=== PATIENT | female | born 1985 | race Caucasian/White ===

== ENCOUNTER 2019-01-18 16:49 | Emergency (ER) | payer MEDICAID ==
[~2019-01-18] VITALS: Ht 172.7 cm; Wt 103.9 kg
[2019-01-18 17:02] VITALS: BP 147/62
--- NOTE | 2019-01-18 17:10 | NUR ---
PT TO WAIT IN [facility] FOR ER BED. AA0X4. AMB WITH STEADY GAIT Addendum: 01/18/19 at 1716 by [email or web address] PER COLIN ALEGRE PT OKAY TO WAIT IN [facility]
--- NOTE | 2019-01-18 17:10 | NUR ---
BIB FRIEND. AAO X4 C/O N/V/D AND AB PAIN X TODAY. DENIES VAGINAL BLEEDING. LMP OCTOBER 01, 2018. 15 WEEKS. CONFIRMED BY US. TAKING PRENATALSGRAVIDA 8, 2 MISCARRIAGES, 2 ABORTIONS, 3 LIVING. PT IS TAKING VITAMINS AND IS BEING SEEN BY AN OB DOCTOR. ER TO EVALUATE PT. PMH- ANEMIA
--- NOTE | 2019-01-18 17:47 | NUR ---
DR LAYNE AT BEDSIDE FOR PT EVAL
[2019-01-18] MEDS ORDERED: ONDANSETRON 4 MG/2 ML VIAL IVP ONE (17:50)
[2019-01-18] MEDS ORDERED: NACL 0.9% 1,000 ML IV ONE (17:50)
[2019-01-18 18:13] LABS: BASOPHILS % (AUTO) 0.2 % (0.0-2.0); EOSINOPHILS # (AUTO) 0.1 K/uL (0-0.4); EOSINOPHILS % (AUTO) 1.2 % (0.0-4.0); HEMATOCRIT 29.6 % (36-48); HEMOGLOBIN 9.1 g/dL (12.0-16.0); LYMPHOCYTES # (AUTO) 1.2 K/uL (2.5-16.5); LYMPHOCYTES % (AUTO) 11.3 % (20.5-51.1); MEAN CORPUSCULAR HEMOGLOBIN 19 pg (27-31); MEAN CORPUSCULAR HGB CONC 31 g/dL (33-37); MEAN CORPUSCULAR VOLUME 60.3 fL (80-94); MONOCYTES # (AUTO) 0.5 K/uL (0.8-1.0); NEUTROPHILS # (AUTO) 8.7 K/uL (1.8-7.7); NEUTROPHILS % (AUTO) 82.3 % (42.2-75.2); PLATELET COUNT (AUTO) 187 K/uL (140-450); RED BLOOD CELL COUNT(AUTO) 4.91 MIL/uL (4.20-5.40); RED CELL DISTRIBUTION WIDTH 19.6 % (11.6-13.7); WHITE BLOOD COUNT (AUTO) 10.5 K/uL (4.8-10.8)
[2019-01-18 18:14] LABS: APPEARANCE,URINE HAZY (CLEAR); BILIRUBIN,URINE 1+ (NEGATIVE); BLOOD, URINE NEGATIVE (NEGATIVE); COLOR,URINE YELLOW (YELLOW); LEUKOCYTE ESTERASE ,URINE TRACE (NEGATIVE); NITRITE, URINE NEGATIVE (NEGATIVE); UGLUCOSE NEGATIVE (NEGATIVE)
--- NOTE | 2019-01-18 18:25 | NUR ---
PT IS LAYING DOWN. AAO X4, FULL CLEAR SPEECH. ACTING APPROPRIATELY. NO SIGNS AND SYMPTOMS OF DISTRESS NOTED.
[2019-01-18 18:30] LABS: RBC,URINE 0-5 /HPF (0-5)
[2019-01-18 18:32] LABS: ANION GAP 14.6 (8-16); CREATININE 0.6 mg/dL (0.6-1.3); POTASSIUM 3.6 mmol/L (3.5-5.1)
[2019-01-18 18:45] LABS: ALBUMIN 2.6 g/dL (3.4-5.0); TOTAL BILIRUBIN 0.4 mg/dL (0.0-1.0)
[2019-01-18 19:15] VITALS: BP 139/76
--- NOTE | 2019-01-18 19:15 | NUR ---
Patient discharged with v/s stable. Written and verbal after care instructions given and explained. Patient alert, oriented and verbalized understanding of instructions. Ambulatory with steady gait. All questions addressed prior to discharge. ID band removed. Patient advised to follow up with PMD. Rx of DICLEGIS 10 MG -10MG, MACROBID given. Patient educated on indication of medication including possible reaction and side effects. Opportunity to ask questions provided and answered.
== END 2019-01-18 19:15 | disposition home or self-care (01) ==
LOC: MED 16:49
DX: O23.42 Unspecified infection of urinary tract in pregnancy, second trimester (principal); O26.892 Other specified pregnancy related conditions, second trimester; R19.7 Diarrhea, unspecified; O99.012 Anemia complicating pregnancy, second trimester; Z3A.20 20 weeks gestation of pregnancy; Z90.49 Acquired absence of other specified parts of digestive tract; Z90.89 Acquired absence of other organs
CPT/HCPCS: 36415; 80053; 81001; 81025; 83690; 84703; 85025; 87086; 96361; 96374; 99283; J2405; J7030

== ENCOUNTER 2019-02-19 19:14 | Emergency (ER) | payer MEDICAID ==
[~2019-02-19] VITALS: Ht 172.7 cm; Wt 103.9 kg
[2019-02-19 19:25] VITALS: BP 119/66
[2019-02-19] MEDS ORDERED: NACL 0.9% 1,000 ML IV SCH (19:57)
[2019-02-19] MEDS ORDERED: ONDANSETRON 4 MG/2 ML VIAL IVP ONE (20:00)
[2019-02-19] MEDS ORDERED: ACETAMINOPHEN 325 MG TAB PO ONE (20:00)
[2019-02-19 20:42] LABS: BASOPHILS % (AUTO) 0.3 % (0.0-2.0); MEAN CORPUSCULAR VOLUME 59.7 fL (80-94); MONOCYTES # (AUTO) 0.5 K/uL (0.8-1.0); NEUTROPHILS # (AUTO) 10.2 K/uL (1.8-7.7); RED CELL DISTRIBUTION WIDTH 19.8 % (11.6-13.7); WHITE BLOOD COUNT (AUTO) 12.4 K/uL (4.8-10.8)
[2019-02-19 20:44] LABS: APPEARANCE,URINE CLEAR (CLEAR); BILIRUBIN,URINE 1+ (NEGATIVE); BLOOD, URINE NEGATIVE (NEGATIVE); COLOR,URINE YELLOW (YELLOW); LEUKOCYTE ESTERASE ,URINE 1+ (NEGATIVE); NITRITE, URINE NEGATIVE (NEGATIVE); UGLUCOSE NEGATIVE (NEGATIVE)
[2019-02-19 20:47] LABS: EOSINOPHILS # (AUTO) 0.2 K/uL (0-0.4); EOSINOPHILS % (AUTO) 1.3 % (0.0-4.0); HEMATOCRIT 29.1 % (36-48); HEMOGLOBIN 8.9 g/dL (12.0-16.0); LYMPHOCYTES # (AUTO) 1.5 K/uL (2.5-16.5); LYMPHOCYTES % (AUTO) 11.8 % (20.5-51.1); MEAN CORPUSCULAR HEMOGLOBIN 18 pg (27-31); MEAN CORPUSCULAR HGB CONC 31 g/dL (33-37); MONOCYTES % (AUTO) 4.4 % (1.7-9.3); NEUTROPHILS % (AUTO) 82.2 % (42.2-75.2); PLATELET COUNT (AUTO) 198 K/uL (140-450); RED BLOOD CELL COUNT(AUTO) 4.88 MIL/uL (4.20-5.40)
[2019-02-19 20:54] LABS: CARBON DIOXIDE 22.6 mmol/L (21-32); CREATININE 0.6 mg/dL (0.6-1.3); POTASSIUM 3.6 mmol/L (3.5-5.1)
[2019-02-19 20:55] LABS: RBC,URINE 0-5 /HPF (0-5); WBC,URINE 0-5 /HPF (0-5)
[2019-02-19 21:01] LABS: ALBUMIN 2.7 g/dL (3.4-5.0); TOTAL BILIRUBIN 0.4 mg/dL (0.0-1.0)
[2019-02-19] MEDS ORDERED: PROMETHAZINE 25 MG/ML VIAL IVP ONE (21:35)
[2019-02-20 01:45] VITALS: BP 131/65
== END 2019-02-20 01:45 | disposition home or self-care (01) ==
LOC: MED 19:14
DX: O26.892 Other specified pregnancy related conditions, second trimester (principal); R10.13 Epigastric pain; O99.412 Diseases of the circulatory system complicating pregnancy, second trimester; R00.2 Palpitations; Z3A.20 20 weeks gestation of pregnancy; Z90.49 Acquired absence of other specified parts of digestive tract
CPT/HCPCS: 36415; 76705; 76805; 80053; 81001; 82150; 83690; 85025; 87086; 96374; 96375; 99284; J2405; J2550; J7030; Q0092

== ENCOUNTER 2023-11-26 21:06 | Emergency (ER) | payer MEDICAID ==
[~2023-11-26] VITALS: Ht 172.7 cm; Wt 94.3 kg
[2023-11-26 21:21] VITALS: BP 131/85; PULSE 101; RESP 18; TEMP 97.8; O2SAT 100
[2023-11-26 22:28] VITALS: O2SAT 100
[2023-11-26] MEDS ORDERED: AMOX-1230 PO (22:44)
== END 2023-11-26 22:50 | disposition home or self-care (01) ==
LOC: MED 21:06
DX: H66.91 Otitis media, unspecified, right ear (principal); Z79.899 Other long term (current) drug therapy
CPT/HCPCS: 71045; 99283; Q0092